=== PATIENT | male | born 1950 | race Caucasian/White ===

== ENCOUNTER 2020-03-29 21:18 | Emergency (ER) | payer MEDICAID, MEDICARE ==
--- NOTE | 2020-03-29 22:13 | EDM.PDOC ---
ED HPI GENERAL MEDICAL PROBLEM - General Chief Complaint: Chest Pain Stated Complaint: CHEST PAINS Time Seen by Provider: 03/29/20 21:35 Source of Information: Reports: Patient History Limitations: Reports: No Limitations - History of Present Illness INITIAL COMMENTS - FREE TEXT/NARRATIVE: 69-year-old male, very healthy who has a history of intermittent atrial fibrillation and a left bundle branch block but on no medications. He went for a vigorous 30 mile bike ride 3 days ago and since that time he has had intermittent chest discomfort, mostly substernal radiating to the left anterior chest. Seems somewhat worse with a deep breath, but no shortness of breath or diaphoresis. This has happened to him several times in the past where he has been evaluated in the emergency room and they have "found nothing". Unfortunately he has never followed through with a stress test or cardiac evaluation. Duration: Day(s): (3 days of intermittent chest discomfort) Location: Reports: Chest Associated Symptoms: Reports: No Other Symptoms Chest Pain Score (Numeric/FACES): 1 - Related Data Allergies Allergy/AdvReac Type Severity Reaction Status Date / Time No Known Allergies Allergy Verified 03/29/20 21:30 Home Meds: Home Meds NK [No Known Home Meds] 03/29/20 [History] Past Medical History HEENT History: Reports: Impaired Vision Cardiovascular History: Reports: Afib, Angina, Arrhythmia, Other (See Below) Other Cardiovascular History: Bundle branch block Genitourinary History: Reports: Prostate Disorder Musculoskeletal History: Reports: Fracture Neurological History: Reports: Concussion, Head Trauma - Infectious Disease History Infectious Disease History: Reports: Chicken Pox, Measles - Past Surgical History HEENT Surgical History: Reports: Tonsillectomy Social & Family History - Tobacco Use Smoking Status *Q: Never Smoker ED ROS GENERAL - Review of Systems Review Of Systems: See Below Constitutional: Denies: Fever, Chills, Malaise HEENT: Reports: No Symptoms Respiratory: Denies: Shortness of Breath Cardiovascular: Reports: Chest Pain. Denies: Palpitations GI/Abdominal: Denies: Abdominal Pain, Nausea, Vomiting Skin: Reports: No Symptoms Neurological: Denies: Headache Psychiatric: Reports: No Symptoms ED EXAM, GENERAL - Physical Exam Exam: See Below Exam Limited By: No Limitations General Appearance: Alert, No Apparent Distress Eye Exam: Bilateral Eye: Normal Inspection Head: Atraumatic Respiratory/Chest: No Respiratory Distress, Lungs Clear Cardiovascular: Regular Rate, Rhythm, No Murmur GI/Abdominal: Soft, Non-Tender Extremities: Normal Inspection. No: Pedal Edema Neurological: Alert, Oriented, No Motor/Sensory Deficits Psychiatric: Normal Affect, Normal Mood Skin Exam: Warm, Dry EKG INTERPRETATION Rhythm: NSR QRS: LBBB EKG Interpretation Comments: No previous EKGs to compare but according to the patient he has had a left bundle branch block diagnosed in the past. Therefore this is not a new finding. Course - Vital Signs Last Recorded V/S: Last Vital Signs Temp 97.5 F 03/29/20 21:33 Pulse 86 03/29/20 21:33 Resp 11 L 03/29/20 21:33 BP 164/95 H 03/29/20 21:33 Pulse Ox 98 03/29/20 21:33 - Orders/Labs/Meds Orders: Active Orders 24 hr Category Date Time Status EKG 12 Lead [EK] Routine Ther 03/29/20 21:37 Ordered Labs: Laboratory Tests 03/29/20 03/29/20 Range/Units 21:37 21:54 WBC 6.3 (4.5-11.0) K/uL RBC 5.00 (4.30-5.90) M/uL Hgb 14.4 (12.0-15.0) g/dL Hct 43.9 (40.0-54.0) % MCV 88 (80-98) fL MCH 29 (27-31) pg MCHC 33 (32-36) % Plt Count 214 (150-400) K/uL Neut % (Auto) 60 (36-66) % Lymph % (Auto) 29 (24-44) % [place] % (Auto) 8 H (2-6) % Eos % (Auto) 2 (2-4) % Baso % (Auto) 1 (0-1) % Sodium 140 (140-148) mmol/L Potassium 3.9 (3.6-5.2) mmol/L Chloride 105 (100-108) mmol/L Carbon Dioxide 26 (21-32) mmol/L Anion Gap 9.4 (5.0-14.0) mmol/L BUN 22 H (7-18) mg/dL Creatinine 1.3 (0.8-1.3) mg/dL Est Cr Clr Drug Dosing 59.69 mL/min Estimated GFR (MDRD) 55 L (>60) Glucose 148 H (74-106) mg/dL Calcium 8.8 (8.5-10.1) mg/dL Troponin I < 0.017 (0.000-0.056) ng/mL - Re-Assessments/Exams Free Text/Narrative Re-Assessment/Exam: 03/29/20 22:13 Initial EKG showed a left bundle branch block which apparently is consistent with his past EKGs. He was kept on ekg monitor tech, CBC BMP and troponin were obtained. He has already taken an aspirin today. 03/29/20 22:30 Labs are reassuring, troponin is 0 and patient remained comfortable. I recommended continuing a full dose aspirin daily and limit activity until a cardiology consultation or stress test. Departure - Departure Time of Disposition: 22:37 Disposition: Home, Self-Care 01 Clinical Impression: Chest pain, atypical - Discharge Information Instructions: Nonspecific Chest Pain, Adult, [id number] Referrals: PCP,None [Primary Care Provider] - Forms: ED Department Discharge Care Plan Goals: Continue activity as tolerated but avoid vigorous exercise until a cardiology consultation can be obtained. Continue on full dose aspirin daily. Return anytime if worsening or concerns. Sepsis Event Note (ED) - Evaluation Sepsis Screening Result: No Definite Risk - Focused Exam Vital Signs: Vital Signs Temp Pulse Resp BP Pulse Ox 03/29/20 21:33 97.5 F 86 11 L 164/95 H 98 03/29/20 21:32 97.5 F 86 11 L 164/95 H 98 - My Orders Last 24 Hours: My Active Orders 03/29/20 21:37 EKG 12 Lead [EK] Routine - Assessment/Plan Last 24 Hours: My Active Orders 03/29/20 21:37 EKG 12 Lead [EK] Routine
== END 2020-03-29 22:38 | disposition home or self-care (01) ==
LOC: JP.ED 21:18
DX: R07.89 Other chest pain (principal); I48.91 Unspecified atrial fibrillation
CPT/HCPCS: 36415; 80048; 84484; 85025; 93005; 99285-25